=== PATIENT | male | born 1980 | race Caucasian/White ===

== ENCOUNTER 2018-08-19 15:48 | Emergency (ER) | payer SELFPAY ==
[~2018-08-19] VITALS: Ht 434.3 cm; Wt 103.0 kg
[2018-08-19 15:54] VITALS: BP 132/98; Ht 434.3 cm; Wt 103.0 kg
== END 2018-08-19 17:33 | disposition home or self-care (01) ==
LOC: ED 15:48
DX: S62.327A Displaced fracture of shaft of fifth metacarpal bone, left hand, initial encounter for closed fracture (principal); W50.0XXA Accidental hit or strike by another person, initial encounter; Y93.89 Activity, other specified; Y92.89 Other specified places as the place of occurrence of the external cause; Y99.8 Other external cause status